=== PATIENT | female | born 1960 | race Caucasian/White ===

== ENCOUNTER 2016-09-16 07:30 | Day surgery (SDC) | payer MEDICAID ==
[~2016-09-16] VITALS: Ht 152.4 cm; Wt 53.6 kg
[2016-09-16] MEDS ORDERED: ATORVASTATIN (08:30)
[2016-09-16] MEDS ORDERED: VITAMIN D (08:30)
[2016-09-16] MEDS ORDERED: ALENDRONATE SODIUM (08:30)
[2016-09-16 08:31] VITALS: Ht 152.4 cm; Wt 53.6 kg
[2016-09-16 09:11] VITALS: BP 124/70; PULSE 56; RESP 18
[2016-09-16] MEDS ORDERED: MIDAZOLAM 1 MG/ML 2 ML INJ ONE ×2 (09:40)
[2016-09-16] MEDS ORDERED: FENTAnyl 50 MCG/ML VIAL ONE (09:40)
--- NOTE | 2016-09-16 14:04 | GILP ---
DATE OF PROCEDURE: NAME OF PROCEDURE: Colonoscopy. SURGEON: Mildred Garcia MD PREOPERATIVE DIAGNOSIS: Screening colonoscopy. POSTOPERATIVE DIAGNOSES: 1. Colonoscopy all the way to the cecum. 2. Internal hemorrhoids. 3. No colon neoplasm was identified. INDICATION FOR THE PROCEDURE: Ms. Maranda Eddy is a 56-year-old female patient who was schedul ed for screening colonoscopy. The procedure and possible complications are well explained to the patient. The patient understood and consented to the procedure. DESCRIPTION OF PROCEDURE: Under the influence of fentanyl and Versed, the colonoscope was carefully introduced in the rectum and under direct vision, it was advanced all the way to the cecum. FINDINGS: The patient had internal hemorrhoids. No colon neoplasm was identified. She tolerated the procedure very well and there was no complication from the procedure. At the end of the procedures, she was awake with stable vital signs and she was discharged home to the care of her family. IMPRESSION: 1. Colonoscopy all the way to the cecum. 2. Internal hemorrhoids. 3. No colon neoplasm was identified. PLAN: Screening colonoscopy in 10 years. Dictated By: MILDRED PARK/RUDY Conf#: [id number] DID#: [id number]
== END 2016-09-16 13:02 | disposition home or self-care (01) ==
LOC: GIL 07:30
PROVIDERS: ATTEND Internal Medicine Gastroenterology
DX: Z12.11 Encounter for screening for malignant neoplasm of colon (principal); K64.8 Other hemorrhoids
CPT/HCPCS: 45378; J2250; J3010; Z7610